=== PATIENT | female | born 1980 | race Caucasian/White ===

== ENCOUNTER 2016-05-05 12:57 | Emergency (ER) | payer MEDICAID ==
[2016-02-06 16:32] VITALS: BMI 27.5
[~2016-05-05 12:57] MED LIST: HYDROCODON-ACE1 EAC7 PO; PHENERGAN25 M1; TYLENOL W/CODEI1 TAB PO
== END 2016-05-05 14:12 | disposition home or self-care (01) ==
LOC: D.ER 12:57
DX: T82.897A Other specified complication of cardiac prosthetic devices, implants and grafts, initial encounter (principal); M94.0 Chondrocostal junction syndrome [Tietze]; R00.1 Bradycardia, unspecified